=== PATIENT | female | born 1995 | race Caucasian/White ===

== ENCOUNTER 2016-07-01 14:38 | Emergency (ER) | payer OTHER ==
[2016-07-01] MEDS ORDERED: CYCLOBENZAPRINE5 M1 PO (15:58)
== END 2016-07-01 16:28 ==
LOC: EDMED 14:38
DX: S06.0X0A Concussion without loss of consciousness, initial encounter (principal); M54.2 Cervicalgia; V49.40XA Driver injured in collision with unspecified motor vehicles in traffic accident, initial encounter; Y92.410 Unspecified street and highway as the place of occurrence of the external cause